=== PATIENT | female | born 1990 | race American Indian/Alaskan Native ===

== ENCOUNTER 2017-07-18 11:05 | Inpatient (IN) | payer OTHER ==
[2017-07-18] MEDS ORDERED: LACTATED RINGERS 500 ML IV ONE (12:30)
[2017-07-18 12:53] LABS: Bacteria,Urine 1+ /HPF (Negative); Bilirubin,Urine NEG (Negative); Blood,Urine NEG (Negative); Color,Urine Yellow (Yellow); Nitrite,Urine NEG (Negative); Protein,Urine <15 mg/dL mg/dL (Negative); Urobilinogen,Urine < 2.0 mg/dL (<2.0)
[2017-07-18] MEDS ORDERED: BRETHINE SUB-Q ONE (14:00)
[2017-07-18] MEDS ORDERED: DEEP SEA NS PRN (15:19)
[2017-07-18] MEDS ORDERED: AMBIEN PO PRN (15:19)
[2017-07-18] MEDS ORDERED: SENOKOT S PO PRN (15:19)
[2017-07-18] MEDS ORDERED: MILK OF MAGNESIA PO PRN (15:19)
[2017-07-18] MEDS ORDERED: ZOFRAN IV PRN (15:19)
[2017-07-18] MEDS ORDERED: COLACE PO PRN (15:19)
[2017-07-18] MEDS ORDERED: ALUM-MAG HYDROX-SIMETH 200-200-20MG/5ML PO PRN (15:19)
[2017-07-18] MEDS ORDERED: MAGNESIUM SULFATE 4GM/100ML 4 GM/100 ML BAG IV ONE (15:19)
--- NOTE | 2017-07-18 15:42 | History and Physical Report ---
History of Present Illness Date of examination: 07/18/17 Chief complaint: labor @ 30 weeks, twin gestation History of present illness: EDC Confirmation: 09/23/2017 by 1st trimester u/s Past History : 5 Term Births: 3 Premature Births: 1 Living Children: 3 Para: 3 Mult. Births: 0 Prev : 0 Prev. attempt? 0 Aborta: 1 Elect. Ab: 0 Spont. Ab: 1 Ectopics: 0 # 1 Delivery date: 08/2005 Weeks Gestation: 34 labor: yes Delivery type: Anesthesia type: epidural Delivery location: [facility] Sex: Female weight: 6-7 Comments: dilated ctx # 2 Delivery date: 05/2007 Weeks Gestation: 40 Delivery type: Anesthesia type: epidural Delivery location: [place] [facility] Sex: Male weight: 7-4 # 3 Delivery date: 04/2012 Delivery type: MAB Comments: cytotec # 4 Delivery date: 01/11/2014 Weeks Gestation: 40 Delivery type: Vaginal Anesthesia type: epidural Delivery location: [facility] Sex: male weight: 7.69 Past Medical History: Nora Chopra (2016) Past Surgical History: Reviewed history from 05/10/2015 and no changes required: cervical cryoablation 2006 Family History Summary: Mother (biol.) - Has Family History of Diabetes - Entered On: 01/24/2017 Other family member - Has Family History of Depression - Entered On: 01/24/2017 General Comments - FH: Family History of Hypertension Social History: Reviewed history from 10/26/2014 and no changes required: non smoker Patient is Smoking History: Patient has never smoked. 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 Genetic History Congenital Heart Defect: Mom: no Dad: no Adriane Disease: Mom: no Dad: no Thalassemia Mom: no Dad: no Neural Tube Defect Mom: no Dad: no Down's Syndrome Mom: no Dad: no Michael-Sachs Mom: no Dad: no Sickle Cell Disease/Trait Mom: no Dad: no Hemophilia Mom: no Dad: no Muscular Dystrophy Mom: no Dad: no Cystic Fibrosis Mom: no Dad: no [place] Chorea Mom: no Dad: no Mental Retardation Mom: no Dad: no Fragile X Mom: no Dad: no Other Genetic/Chromosomal Disorder Mom: no Dad: no Child w/other defect Mom: no Dad: no Enviromental Exposures Xray Exposure: no Medication, drug, or alcohol use since LMP: no Chemical/Other Exposure: no Exposure to Cat Liter: no Hx of Parvovirus (Fifth Disease): no Active Medications (reviewed today): PROMETHAZINE HCL 25 MG ORAL TABS (PROMETHAZINE HCL) 1 tab q 4 to 6 h prn nausea IBUPROFEN () Current Allergies (reviewed today): BENADRYL (Critical) * LATEX (Critical) Past History Past Medical History: other (see HPI) Past Surgical History: other (See HPI) 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) Family/Genetic History: other (see HPI) - Obstetrical History Expected Date of Delivery: 09/23/17 Actual Gestation: 30 Week(s) 3 Day(s) : 5 Para: 3 Hx # Term Pregnancies: 2 Number of Pregnancies: 1 Spontaneous Abortions: 1 Induced : 0 Number of Living Children: 3 Medications and Allergies Allergies Allergy/AdvReac Type Severity Reaction Status Date / Time diphenhydramine HCl Allergy Mild Hives Verified 10/30/13 12:48 [From Benadryl] latex Allergy Itching Verified 12/20/13 14:44 Home Medications Medication Instructions Recorded Confirmed Last Taken Type Vits96/Iron Fum/Folic 1 tab PO DAILY 01/06/14 05/01/17 04/30/17 History [ Tablet] Aspirin [Adult Low Dose Aspirin EC] 81 mg PO DAILY 05/01/17 05/01/17 04/30/17 History Meclizine [Antivert] 25 mg PO TID #30 tablet 05/01/17 Unknown Rx Active Meds: Active Medications Acetaminophen (Tylenol) 650 mg PO Q4H PRN PRN Reason: Pain MILD(1-3)/Fever >100.5/MISHRA Al Hydrox/Mg Hydrox/Simethicone (Alum-Mag Hydrox-Simeth [id number]/5ml) 30 ml PO Q6H PRN PRN Reason: Indigestion Betamethasone Acet/Betameth SodPhos (Celestone Soluspan) 12 mg IM Q24HR MOLINA Stop: 07/19/17 10:01 Docusate Sodium (Colace) 100 mg PO Q12H PRN PRN Reason: Constipation Lactated Ringer's (Lactated Ringers) 1,000 mls @ 125 mls/hr IV DIRECT MOLINA Magnesium Sulfate (Magnesium Sulfate 40gm/1000ml) 40 gm in 1,000 mls @ 50 mls/ hr IV DIRECT MOLINA PRN Reason: 2 GM/HR Magnesium Sulfate (Magnesium Sulfate 4gm/100ml) 4 gm in 100 mls @ 300 mls/hr IV ONCE ONE Stop: 07/18/17 15:38 Magnesium Hydroxide (Milk Of Magnesia) 30 ml PO QHS PRN PRN Reason: Laxative Effect Multivitamins/Iron/Calcium ( Vitamin) 1 each PO QDAY MOLINA Ondansetron HCl (Zofran) 4 mg IV Q6H PRN PRN Reason: Nausea And Vomiting Senna/Docusate Sodium (Senokot S) 2 tab PO Q12H PRN PRN Reason: Laxative Effect Simethicone (Mylicon) 80 mg PO Q6H PRN PRN Reason: Gas pain Sodium Chloride (Deep Sea) 2 spray NS Q4H PRN PRN Reason: Congestion Zolpidem Tartrate (Ambien) 10 mg PO ONCE PRN PRN Reason: Sleep Review of Systems All systems: negative - Vital Signs Vital signs: Vital Signs Temp Pulse Resp BP 98.4 F 90 16 96/60 07/18/17 11:27 07/18/17 11:27 07/18/17 11:27 07/18/17 11:27 Temp Pulse Resp BP Pulse Ox 98.4 F 90 16 96/60 07/18/17 11:27 07/18/17 11:31 07/18/17 11:27 07/18/17 11:31 Results All other labs normal. Patient: ROBBIN CHRISTY ID: [id number] Note: All result statuses are Final unless otherwise noted. Tests: (1) Profile I ([id number]) Order Note: Clinical Information: SRC:UR HBsAg Screen Negative Negative *1 Rubella Antibodies, IgG 1.90 index Immune >0.99 *2 Non-immune <0.90 Equivocal 0.90 - 0.99 Immune >0.99 ABO Grouping O *3 Rh Factor Positive *4 Please note: Prior records for this patient's ABO / Rh type are not available for additional verification. Antibody Screen Negative Negative *5 RPR Non Reactive Non Reactive *6 WBC 4.0 x10E3/uL 3.4-10.8 *7 RBC 4.35 x10E6/uL 3.77-5.28 *8 Hemoglobin 13.6 g/dL 11.1-15.9 *9 Hematocrit 39.7 % 34.0-46.6 *10 MCV 91 fL 79-97 *11 MCH 31.3 pg 26.6-33.0 *12 MCHC 34.3 g/dL 31.5-35.7 *13 RDW 13.3 % 12.3-15.4 *14 Platelets 180 x10E3/uL 150-379 *15 Neutrophils 49 % *16 Lymphs 40 % *17 Monocytes 10 % *18 Eos 1 % *19 Basos 0 % *20 ! Immature Cells <No Reported Value> *21 Neutrophils (Absolute) 2.0 x10E3/uL 1.4-7.0 *22 Lymphs (Absolute) 1.6 x10E3/uL 0.7-3.1 *23 Monocytes(Absolute) 0.4 x10E3/uL 0.1-0.9 *24 Eos (Absolute) 0.0 x10E3/uL 0.0-0.4 *25 Baso (Absolute) 0.0 x10E3/uL 0.0-0.2 *26 ! Immature Granulocytes 0 % *27 ! Immature Grans (Abs) 0.0 x10E3/uL 0.0-0.1 *28 ! NRBC <No Reported Value> *29 Hematology Comments: <No Reported Value> *30 Tests: (2) Cystic Fibrosis Profile ([id number]) ! CF, Screen Comment: *31 RESULTS: Negative for 32 mutations analyzed INTERPRETATION: This individual is negative for the mutations analyzed. This negative result may need further interpretation depending on the clinical indication. This result reduces but does not eliminate the risk to be a CF carrier. COMMENTS: The detection rate varies with ethnicity and is listed below. The presence of an undetected mutation in the CF gene cannot be ruled out. In the absence of family history, the remaining risk that a person with a negative result could have at least one CF mutation is listed in the table. If there is a family history of CF, these risk figures do not apply. As detailed information regarding this individual's family history would permit a more accurate assessment of this individual's risk to be a carrier of cystic fibrosis, please contact [email or web address] for a revised report. Mutation Detection Detection rates are based on mutation Rates among Ethnic frequencies in patients affected with Groups cystic fibrosis. Among individuals with an atypical or mild presentation (e.g. congenital absence of the vas deferens, pancreatitis) detection rates may vary from those provided here: Carrier risk reduction when no family history Detection Ethnicity Rate Ashkenazi 07/25 to 97% Buddhism 07/24 to 90% (non-) -Israeli to 69% to 73% to 55% This interpretation is based on the clinical and family relationship information provided and the current understanding of the molecular genetics of this condition. MUTATIONS ANALYZED: G85E V520F U2728Z 2183AA to G R117H G542X F8385D 2184delA R334W S549N 394delTT 2789+5G to A R347H S549R 621+1G to T 3120+1G to A R347P G551D 711+1G to T 3659delC A455E R553X 1078delT 3849+10kbC to T [id number] R560T 1717-1G to A 3876delA RgesiV723 H7078D 1898+1G to A 3905insT METHODS/LIMITATIONS: DNA is isolated from the sample and tested for the 32 CF mutations on the [place] [employer] Platform ([employer]). Regions of the CFTR gene are amplified enzymatically and subjected to a solution-phase multiplex allele-specific primer extension with subsequent hybridization to a bead array and fluorescence detection. Polymorphisms F508C, I506V and I507V are included in this panel to rule out false positive [id number] homozygotes. Reflex testing of 5T is included in the panel for R117H interpretation. False positive or negative results may occur for reasons that include genetic variants, blood transfusions, bone marrow transplantation, erroneous representation of family relationships or contamination of a sample with maternal cells. REFERENCES: 1. Updates on Carrier Screening for Cystic Fibrosis. (2011) Am J Ob Gynecol 117(4):6185-7511 2. Brandon et al. (2004) Irene Med 6:387-91 3. Leslie et al. (2002) Irene Med 4:379-391 4. Preconception and carrier screening for cystic fibrosis: (2001)ACOG.ACMG publication Results Released By: Ian Saha, Ph.D. [employer] Top Sealer Report Released By: Ian Saha, Ph.D. String Top Sealer ! Comment: SPRCS *32 The assay provides information intended to be used for carrier screening in adults of reproductive age, as an aid in screening, and as a confirmatory test for another medically established diagnosis in newborns and children. The test is not indicated for use in diagnostic testing, pre-implantation screening, or for any stand-alone diagnostic purposes without confirmation by another medically established diagnostic product or procedure. Tests: (3) HB Solu + Rflx Frac ([id number]) Hemoglobin (Hgb) Solubility Negative Negative *33 Tests: (4) Panel 328388 ([id number]) HIV Screen 4th Generation wRfx Non Reactive Non Reactive *34 Tests: (5) HCV Ab w/Rflx to Verification ([id number]) ! HCV Ab <0.1 s/co ratio 0.0-0.9 *35 Tests: (6) Comment: ([id number]) ! Comment: SPRCS *36 Non reactive HCV antibody screen is consistent with no HCV infection, unless recent infection is suspected or other evidence exists to indicate HCV infection. Tests: (7) Urine Culture, Routine ([id number]) Urine Culture, Routine Final report *37 Tests: (8) Result ([id number]) ! Result 1 No growth *38 Assessment and Plan patient presented to triage @ 30 weeks with c/o painful ctx, twin gestation. Ctx did not decrease in intensity or frequency with IVF and brethine x 1. SVE 1 per assistant city attorney, + FFN. Plan to admit for labor, mag sulfate and steroids for lung maturity. Will consults AMFM (pt is existing patient of theirs) and NICU. Dr. Claire aware of patient's admission. Plan of care reviewed with patient, all questions addressed. - Patient Problems (1) 30 weeks gestation of Current Visit: Yes Status: Acute (2) labor in third trimester Onset Date: 07/18/17 Current Visit: Yes Status: Acute Qualifiers: Fetus number: fetus 2 of multiple gestation Plan to address problem: mag sulfate steroids for lung maturity AMFM consult (3) Twin gestation, dichorionic/diamniotic (two placentae, two amniotic sacs) Current Visit: Yes Status: Acute Qualifiers: Trimester: third trimester Qualified Code(s): O30.043 - Twin , dichorionic/diamniotic, third trimester
[2017-07-18] MEDS ORDERED: CELESTONE SOLUSPAN IM SCH (16:00)
[2017-07-18] MEDS ORDERED: MAGNESIUM SULFATE 40GM/1000ML 40 GM/1,000 ML BAG IV SCH (16:00)
[2017-07-18] MEDS: LACTATED RINGERS 1,000 ML IV SCH (16:29)
[2017-07-18 16:52] LABS: Basophils % (Auto) 0.5 % (0.0-1.8); Eosinophils % (Auto) 0.4 % (0.0-4.3); Hemoglobin 12.8 gm/dl (10.1-14.3); Lymphocytes # (Auto) 1.4 K/mm3 (1.2-5.4); Lymphocytes % (Auto) 19.7 % (13.4-35.0); Mean Corpuscular HGB Conc 34 % (30-34); Mean Corpuscular Hemoglobin 30 pg (28-32); Mean Corpuscular Volume 90 fl (79-97); Monocytes # (Auto) 0.5 K/mm3 (0.0-0.8); Monocytes % (Auto) 6.7 % (0.0-7.3); Platelet Count 140 K/mm3 (140-440); Red Blood Count 4.23 M/mm3 (3.65-5.03); Red Cell Distribution Width 13.2 % (13.2-15.2)
[2017-07-18] MEDS ORDERED: STADOL ONE (20:38)
[2017-07-18] MEDS ORDERED: STADOL IV ONE (20:39)
[2017-07-19] MEDS: MYLICON PO PRN ×2 (00:38→06:22)
[2017-07-19] MEDS: LACTATED RINGERS 1,000 ML IV SCH ×2 (02:44→16:48)
[2017-07-19] MEDS: STADOL IV PRN ×2 (03:20→22:05)
[2017-07-19] MEDS ORDERED: MAGNESIUM SULFATE 40GM/1000ML 40 GM/1,000 ML BAG IV SCH (04:00)
--- NOTE | 2017-07-19 04:06 | Ultrasound Report ---
FINAL REPORT EXAM: US OB LIMITED HISTORY: presentation TECHNIQUE: Limited transabdominal imaging was obtained of the pelvis for evaluation of presentation. FINDINGS: There is a twin . For twin a, the presentation is cephalic. The placenta is posterior and is grade 1. The heart rate is 124 BPM. The largest vertical pocket of amniotic fluid is 3.7 cm which is normal. For twin B, presentation is breech. The placenta is posterior and is grade 1. The heart is 122 BPM. The largest vertical pocket of an not of fluid is 4.4 cm which is normal. IMPRESSION: Twin a: Cephalic presentation, heart is 124 BPM. Twin B: Breech presentation, heart is 122 BPM The placenta is posterior in position and is grade 1.
--- NOTE | 2017-07-19 04:22 | Progress Note ---
Assessment and Plan - Patient Problems (1) 30 weeks gestation of Current Visit: Yes Status: Acute Plan to address problem: Discussed with the patient the risks of premature delivery at this gestational age obtain a NICU consult discuss lung maturity associated with early delivery and need of the intensive care admission. Patient has received 1 dose of betamethasone and discussed that the benefits of delivering of 48 hours after betamethasone given. (2) labor in third trimester Onset Date: 07/18/17 Current Visit: Yes Status: Acute Qualifiers: Fetus number: fetus 2 of multiple gestation Plan to address problem: Will increase magnesium sulfate to try to begin stay off delivery. Discussed with the patient the need for section due to malposition of twin B. We will recheck patient to see this progress in dilatation.Patient informed the risks of the surgery include bleeding possibly bleeding heavy enough to require blood transfusion, infection possible damage to bowel bladder ureter. All questions answered. (3) Twin gestation, dichorionic/diamniotic (two placentae, two amniotic sacs) Current Visit: Yes Status: Acute Qualifiers: Trimester: third trimester Qualified Code(s): O30.043 - Twin , dichorionic/diamniotic, third trimester (4) Screening and evaluation for female sterilization Current Visit: Yes Status: Acute Plan to address problem: Patient desires permanent sterilization if section was performed She understands that this surgery would make her permanently sterile. She also understands the approximate 1% failure rate. The patient understands all the above and desires to proceed. Subjective - Subjective Date of service: 07/19/17 Interval history: Patient admitted with persistent irregular contractions and positive fibronectin. She had had a mag level of internal 1 g an hour after elevated level was reported the patient does still with the irregular contractions were stronger and stress and had a cervical check shows a change from 1 cm to 3 cm. Ultrasound shows the twin gestation position of the vertex twin A and breech for twin B Patient reports: movement normal, contractions Objective - Vital Signs Vital Signs: Vital Signs - 12hr 07/18/17 07/18/17 07/18/17 16:55 16:57 17:00 Temperature Pulse Rate 94 H 88 82 Respiratory Rate Blood Pressure 109/73 107/65 O2 Sat by Pulse 99 Oximetry 07/18/17 07/18/17 07/18/17 17:02 17:05 17:07 Temperature Pulse Rate 102 H 88 90 Respiratory Rate Blood Pressure 105/61 O2 Sat by Pulse 98 99 Oximetry 07/18/17 07/18/17 07/18/17 17:10 17:12 17:15 Temperature Pulse Rate 90 91 H 93 H Respiratory Rate Blood Pressure 108/65 109/68 O2 Sat by Pulse 100 Oximetry 07/18/17 07/18/17 07/18/17 17:17 17:20 17:22 Temperature Pulse Rate 84 86 88 Respiratory Rate Blood Pressure 115/77 O2 Sat by Pulse 97 100 Oximetry 07/18/17 07/18/17 07/18/17 17:23 17:25 17:27 Temperature Pulse Rate 98 H 88 86 Respiratory Rate Blood Pressure 112/72 O2 Sat by Pulse 94 100 Oximetry 07/18/17 07/18/17 07/18/17 17:31 17:32 17:37 Temperature Pulse Rate 91 H 77 97 H Respiratory Rate Blood Pressure 128/82 O2 Sat by Pulse 100 99 Oximetry 07/18/17 07/18/17 07/18/17 17:40 17:43 17:45 Temperature Pulse Rate 157 H 123 H 78 Respiratory Rate Blood Pressure 120/68 120/65 O2 Sat by Pulse 98 Oximetry 07/18/17 07/18/17 07/18/17 17:48 17:50 17:53 Temperature Pulse Rate 131 H 118 H 138 H Respiratory Rate Blood Pressure 108/60 O2 Sat by Pulse 97 98 Oximetry 07/18/17 07/18/17 07/18/17 17:55 17:58 18:00 Temperature Pulse Rate 71 129 H 125 H Respiratory Rate Blood Pressure 103/60 107/62 O2 Sat by Pulse 97 Oximetry 07/18/17 07/18/17 07/18/17 18:03 18:05 18:08 Temperature Pulse Rate 152 H 142 H 129 H Respiratory Rate Blood Pressure 98/66 O2 Sat by Pulse 97 97 Oximetry 07/18/17 07/18/17 07/18/17 18:11 18:13 18:15 Temperature Pulse Rate 160 H 141 H 155 H Respiratory Rate Blood Pressure 95/80 104/69 O2 Sat by Pulse 100 Oximetry 07/18/17 07/18/17 07/18/17 18:18 18:23 18:28 Temperature Pulse Rate 87 141 H 87 Respiratory Rate Blood Pressure O2 Sat by Pulse 99 99 99 Oximetry 01/07/18/17 07/18/17 18:30 18:33 18:38 Temperature Pulse Rate 93 H 93 H 92 H Respiratory Rate Blood Pressure 103/62 O2 Sat by Pulse 98 98 Oximetry 07/18/17 07/18/17 07/18/17 18:43 18:45 18:48 Temperature Pulse Rate 86 96 H 95 H Respiratory Rate Blood Pressure 104/63 O2 Sat by Pulse 98 99 Oximetry 07/18/17 07/18/17 07/18/17 18:53 18:58 19:00 Temperature Pulse Rate 88 90 96 H Respiratory Rate Blood Pressure 111/63 O2 Sat by Pulse 99 99 Oximetry 07/18/17 07/18/17 07/18/17 19:03 19:08 19:13 Temperature Pulse Rate 100 H 96 H 95 H Respiratory Rate Blood Pressure O2 Sat by Pulse 97 98 98 Oximetry 07/18/17 07/18/17 07/18/17 19:15 19:18 19:23 Temperature Pulse Rate 97 H 101 H 90 Respiratory Rate Blood Pressure 104/66 O2 Sat by Pulse 97 98 Oximetry 07/18/17 07/18/17 07/18/17 19:28 19:30 19:33 Temperature Pulse Rate 90 93 H 97 H Respiratory Rate Blood Pressure 103/67 O2 Sat by Pulse 99 99 Oximetry 07/18/17 07/18/17 07/18/17 19:38 19:42 19:43 Temperature Pulse Rate 114 H 92 H 106 H Respiratory Rate Blood Pressure 100/64 O2 Sat by Pulse 99 100 Oximetry 07/18/17 07/18/17 07/18/17 19:45 19:48 19:53 Temperature 98.0 F Pulse Rate 93 H 96 H 92 H Respiratory 18 Rate Blood Pressure 104/68 O2 Sat by Pulse 98 98 Oximetry 07/18/17 07/18/17 07/18/17 19:58 20:01 20:03 Temperature Pulse Rate 98 H 100 H 93 H Respiratory Rate Blood Pressure 116/62 O2 Sat by Pulse 99 98 Oximetry 07/18/17 07/18/17 07/18/17 20:08 20:13 20:15 Temperature Pulse Rate 93 H 101 H 93 H Respiratory Rate Blood Pressure 110/65 O2 Sat by Pulse 98 98 Oximetry 07/18/17 07/18/17 07/18/17 20:18 20:23 20:28 Temperature Pulse Rate 97 H 98 H 91 H Respiratory Rate Blood Pressure O2 Sat by Pulse 97 98 99 Oximetry 07/18/17 07/18/17 07/18/17 20:31 20:33 20:38 Temperature Pulse Rate 87 90 93 H Respiratory Rate Blood Pressure 110/68 O2 Sat by Pulse 99 99 Oximetry 07/18/17 07/18/17 07/18/17 20:43 20:45 20:48 Temperature Pulse Rate 98 H 96 H 93 H Respiratory 20 Rate Blood Pressure 105/60 O2 Sat by Pulse 98 99 Oximetry 07/18/17 07/18/17 07/18/17 20:53 20:58 21:00 Temperature Pulse Rate 96 H 103 H 90 Respiratory Rate Blood Pressure 109/61 O2 Sat by Pulse 98 98 Oximetry 07/18/17 07/18/17 07/18/17 21:03 21:08 21:13 Temperature Pulse Rate 90 103 H 85 Respiratory Rate Blood Pressure O2 Sat by Pulse 98 98 96 Oximetry 07/18/17 07/18/17 07/18/17 21:15 21:18 21:23 Temperature Pulse Rate 85 89 89 Respiratory Rate Blood Pressure 96/55 O2 Sat by Pulse 96 95 Oximetry 07/18/17 07/18/17 07/18/17 21:28 21:30 21:33 Temperature Pulse Rate 85 88 87 Respiratory Rate Blood Pressure 99/58 O2 Sat by Pulse 97 96 Oximetry 07/18/17 07/18/17 07/18/17 21:38 21:43 21:45 Temperature Pulse Rate 84 87 90 Respiratory Rate Blood Pressure 98/53 O2 Sat by Pulse 96 97 Oximetry 07/18/17 07/18/17 07/18/17 21:48 21:53 21:58 Temperature Pulse Rate 89 90 97 H Respiratory Rate Blood Pressure O2 Sat by Pulse 97 97 98 Oximetry 07/18/17 07/18/17 07/18/17 22:00 22:03 22:08 Temperature Pulse Rate 78 88 97 H Respiratory Rate Blood Pressure 104/61 O2 Sat by Pulse 94 96 95 Oximetry 07/18/17 07/18/17 07/18/17 22:13 22:17 22:18 Temperature Pulse Rate 86 87 86 Respiratory Rate Blood Pressure 97/58 O2 Sat by Pulse 97 97 Oximetry 07/18/17 07/18/17 07/18/17 22:23 22:28 22:32 Temperature Pulse Rate 88 84 89 Respiratory Rate Blood Pressure 97/56 O2 Sat by Pulse 97 96 93 Oximetry 07/18/17 07/18/17 07/18/17 22:33 22:38 22:43 Temperature Pulse Rate 92 H 95 H 89 Respiratory Rate Blood Pressure O2 Sat by Pulse 96 97 97 Oximetry 07/18/17 07/18/17 07/18/17 22:45 22:48 22:53 Temperature Pulse Rate 95 H 88 92 H Respiratory Rate Blood Pressure 99/56 O2 Sat by Pulse 96 96 Oximetry 07/18/17 07/18/17 07/18/17 22:58 23:00 23:03 Temperature Pulse Rate 94 H 91 H 91 H Respiratory Rate Blood Pressure 96/52 O2 Sat by Pulse 96 96 Oximetry 07/18/17 07/18/17 07/18/17 23:08 23:13 23:15 Temperature Pulse Rate 91 H 82 83 Respiratory Rate Blood Pressure 102/60 O2 Sat by Pulse 96 97 Oximetry 07/18/17 07/18/17 07/18/17 23:18 23:23 23:28 Temperature Pulse Rate 92 H 92 H 95 H Respiratory Rate Blood Pressure O2 Sat by Pulse 97 97 97 Oximetry 07/18/17 07/18/17 07/18/17 23:30 23:33 23:38 Temperature Pulse Rate 96 H 94 H 91 H Respiratory Rate Blood Pressure 92/55 O2 Sat by Pulse 97 97 Oximetry 07/18/17 07/18/17 07/19/17 23:43 23:46 00:00 Temperature 97.9 F Pulse Rate 92 H 89 83 Respiratory 18 Rate Blood Pressure 101/58 O2 Sat by Pulse 96 93 97 Oximetry 07/19/17 07/19/17 07/19/17 00:05 00:10 00:15 Temperature Pulse Rate 82 86 86 Respiratory Rate Blood Pressure O2 Sat by Pulse 97 97 97 Oximetry 07/19/17 07/19/17 07/19/17 00:20 00:25 00:30 Temperature Pulse Rate 87 85 86 Respiratory Rate Blood Pressure O2 Sat by Pulse 97 97 97 Oximetry 07/19/17 07/19/17 07/19/17 00:35 00:40 00:45 Temperature Pulse Rate 85 85 84 Respiratory Rate Blood Pressure O2 Sat by Pulse 97 96 97 Oximetry 01/20/18 01/20/18 01/20/18 00:50 00:55 01:00 Temperature Pulse Rate 85 86 86 Respiratory Rate Blood Pressure O2 Sat by Pulse 97 97 97 Oximetry 07/19/17 07/19/17 07/19/17 01:02 01:05 01:10 Temperature Pulse Rate 83 95 H 96 H Respiratory Rate Blood Pressure 99/55 O2 Sat by Pulse 96 97 Oximetry 07/19/17 07/19/17 07/19/17 01:15 01:22 01:23 Temperature Pulse Rate 85 107 H 100 H Respiratory Rate Blood Pressure O2 Sat by Pulse 98 89 94 Oximetry 07/19/17 07/19/17 07/19/17 01:28 01:33 01:38 Temperature Pulse Rate 77 85 83 Respiratory Rate Blood Pressure O2 Sat by Pulse 98 97 96 Oximetry 07/19/17 07/19/17 07/19/17 01:43 01:48 01:53 Temperature Pulse Rate 89 89 91 H Respiratory Rate Blood Pressure O2 Sat by Pulse 96 97 96 Oximetry 07/19/17 07/19/17 07/19/17 01:58 02:01 02:03 Temperature Pulse Rate 87 84 86 Respiratory Rate Blood Pressure 99/57 O2 Sat by Pulse 96 96 Oximetry 07/19/17 07/19/17 07/19/17 02:08 02:13 02:18 Temperature Pulse Rate 88 88 94 H Respiratory Rate Blood Pressure O2 Sat by Pulse 95 95 95 Oximetry 07/19/17 07/19/17 07/19/17 02:23 02:28 02:29 Temperature Pulse Rate 91 H 95 H 96 H Respiratory Rate Blood Pressure O2 Sat by Pulse 95 95 94 Oximetry 07/19/17 07/19/17 07/19/17 02:33 02:38 02:43 Temperature Pulse Rate 92 H 92 H 93 H Respiratory Rate Blood Pressure O2 Sat by Pulse 97 98 97 Oximetry 07/19/17 07/19/17 07/19/17 02:48 02:53 03:06 Temperature Pulse Rate 95 H 86 91 H Respiratory Rate Blood Pressure O2 Sat by Pulse 97 97 99 Oximetry 07/19/17 07/19/17 07/19/17 03:11 03:16 03:20 Temperature Pulse Rate 93 H 93 H Respiratory 20 Rate Blood Pressure O2 Sat by Pulse 99 99 Oximetry 07/19/17 07/19/17 07/19/17 03:21 03:22 03:26 Temperature Pulse Rate 88 100 H 95 H Respiratory Rate Blood Pressure 114/69 O2 Sat by Pulse 97 98 Oximetry 07/19/17 07/19/17 07/19/17 03:31 03:36 03:41 Temperature Pulse Rate 107 H 97 H 103 H Respiratory Rate Blood Pressure O2 Sat by Pulse 97 100 100 Oximetry 07/19/17 07/19/17 07/19/17 03:46 03:51 03:56 Temperature Pulse Rate 89 94 H 99 H Respiratory Rate Blood Pressure O2 Sat by Pulse 97 97 97 Oximetry 07/19/17 07/19/17 07/19/17 04:01 04:03 04:06 Temperature Pulse Rate 90 93 H 89 Respiratory Rate Blood Pressure 106/61 O2 Sat by Pulse 97 97 Oximetry 07/19/17 07/19/17 04:11 04:16 Temperature Pulse Rate 89 87 Respiratory Rate Blood Pressure O2 Sat by Pulse 96 97 Oximetry - Exam Breasts: deferred Abdomen: Present: soft FHR: category 2 Cervical Dilatation: 3 (per RN) Cervical Effacement Percentage: 60 (per RN) station: -2 Uterine Contraction Pattern: Irregular Uterine Contraction Intensity: Moderate - Labs Labs: Abnormal Labs 07/18/17 07/18/17 07/19/17 16:30 18:03 01:00 Seg Neutrophils % 72.7 H Magnesium 6.70 H 4.70 H Laboratory Results - last 24 hr 07/18/17 07/18/17 07/18/17 12:31 13:55 16:30 WBC 7.1 RBC 4.23 Hgb 12.8 Hct 38.0 MCV 90 MCH 30 MCHC 34 RDW 13.2 Plt Count 140 Lymph % (Auto) 19.7 [place] % (Auto) 6.7 Eos % (Auto) 0.4 Baso % (Auto) 0.5 Lymph # 1.4 [place] # 0.5 Eos # 0.0 Baso # 0.0 Seg Neutrophils % 72.7 H Seg Neutrophils # 5.2 Magnesium Urine Color Yellow Urine Turbidity Clear Urine pH 7.0 Ur Specific [place] 1.009 Urine Protein <15 mg/dl Urine Glucose (UA) Neg Urine Ketones 20 Urine Blood Neg Urine Nitrite Neg Urine Bilirubin Neg Urine Urobilinogen < 2.0 Ur Leukocyte Esterase Sm Urine WBC (Auto) 1.0 Urine RBC (Auto) 3.0 U Epithel Cells (Auto) 2.0 Urine Bacteria (Auto) 1+ Fibronectin Positive Blood Type Antibody Screen 07/18/17 07/18/17 07/19/17 16:30 18:03 01:00 WBC RBC Hgb Hct MCV MCH MCHC RDW Plt Count Lymph % (Auto) [place] % (Auto) Eos % (Auto) Baso % (Auto) Lymph # [place] # Eos # Baso # Seg Neutrophils % Seg Neutrophils # Magnesium 6.70 H 4.70 H Urine Color Urine Turbidity Urine pH Ur Specific [place] Urine Protein Urine Glucose (UA) Urine Ketones Urine Blood Urine Nitrite Urine Bilirubin Urine Urobilinogen Ur Leukocyte Esterase Urine WBC (Auto) Urine RBC (Auto) U Epithel Cells (Auto) Urine Bacteria (Auto) Fibronectin Blood Type O POSITIVE Antibody Screen Negative
[2017-07-19] MEDS ORDERED: CELESTONE SOLUSPAN IM ONE (05:59)
--- NOTE | 2017-07-19 06:05 | Event Note ---
Date: 07/19/17 Patient sleep in the room with family. Recheck her cervix showed no change. Contractions still irregular. Will give second dose of betamethasone. We'll continue magnesium sulfate for now. Continue expectant management
[2017-07-19] MEDS: POLYCILLIN/NS 1 GM/50 ML 1 GM/50 ML BAG IV SCH ×4 (07:59→20:00)
--- NOTE | 2017-07-19 08:05 | Progress Note ---
Assessment and Plan Patient resting, c/o sleeping after stadol administration but now feeling ctx again. FHT CAT 1 x 2, ctx irregular. Will reexamine SVE for any additional signs of labor. encouraged ISS. Dr. Sanabria updated. - Patient Problems (1) 30 weeks gestation of Current Visit: Yes Status: Acute (2) labor in third trimester Onset Date: 07/18/17 Current Visit: Yes Status: Acute Qualifiers: Fetus number: fetus 2 of multiple gestation (3) Twin gestation, dichorionic/diamniotic (two placentae, two amniotic sacs) Current Visit: Yes Status: Acute Qualifiers: Trimester: third trimester Qualified Code(s): O30.043 - Twin , dichorionic/diamniotic, third trimester Subjective - Subjective Date of service: 07/19/17 Principal diagnosis: IUP 30+4, labor, twins vtx/breech Interval history: EDC Confirmation: 09/23/2017 by 1st trimester u/s Past History : 5 Term Births: 3 Premature Births: 1 Living Children: 3 Para: 3 Mult. Births: 0 Prev : 0 Prev. attempt? 0 Aborta: 1 Elect. Ab: 0 Spont. Ab: 1 Ectopics: 0 # 1 Delivery date: 08/2005 Weeks Gestation: 34 labor: yes Delivery type: Anesthesia type: epidural Delivery location: [facility] Infant Sex: Female weight: 6-7 Comments: dilated ctx # 2 Delivery date: 05/2007 Weeks Gestation: 40 Delivery type: Anesthesia type: epidural Delivery location: [place] Sex: Male weight: 7-4 # 3 Delivery date: 04/2012 Delivery type: MAB Comments: cytotec # 4 Delivery date: 01/11/2014 Weeks Gestation: 40 Delivery type: Vaginal Anesthesia type: epidural Delivery location: [facility] Infant Sex: male weight: 7.69 Past Medical History: G E R Nav (2016) Past Surgical History: Reviewed history from 05/10/2015 and no changes required: cervical cryoablation 2006 Family History Summary: Mother (biol.) - Has Family History of Diabetes - Entered On: 01/24/2017 Other family member - Has Family History of Depression - Entered On: 01/24/2017 General Comments - FH: Family History of Hypertension Social History: Reviewed history from 10/26/2014 and no changes required: non smoker Patient is Smoking History: Patient has never smoked. 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 Genetic History Congenital Heart Defect: Mom: no Dad: no Adriane Disease: Mom: no Dad: no Thalassemia Mom: no Dad: no Neural Tube Defect Mom: no Dad: no Down's Syndrome Mom: no Dad: no Michael-Sachs Mom: no Dad: no Sickle Cell Disease/Trait Mom: no Dad: no Hemophilia Mom: no Dad: no Muscular Dystrophy Mom: no Dad: no Cystic Fibrosis Mom: no Dad: no Jamil Chorea Mom: no Dad: no Mental Retardation Mom: no Dad: no Fragile X Mom: no Dad: no Other Genetic/Chromosomal Disorder Mom: no Dad: no Child w/other defect Mom: no Dad: no Enviromental Exposures Xray Exposure: no Medication, drug, or alcohol use since LMP: no Chemical/Other Exposure: no Exposure to Cat Liter: no Hx of Parvovirus (Fifth Disease): no Active Medications (reviewed today): PROMETHAZINE HCL 25 MG ORAL TABS (PROMETHAZINE HCL) 1 tab q 4 to 6 h prn nausea IBUPROFEN () Current Allergies (reviewed today): BENADRYL (Critical) * LATEX (Critical) Patient reports: movement normal, contractions, no new complaints, no loss of fluid, no vaginal bleeding Objective - Vital Signs Vital Signs: Vital Signs - 12hr 07/18/17 07/18/17 07/18/17 20:03 20:08 20:13 Temperature Pulse Rate 93 H 93 H 101 H Respiratory Rate Blood Pressure O2 Sat by Pulse 98 98 98 Oximetry 07/18/17 07/18/17 07/18/17 20:15 20:18 20:23 Temperature Pulse Rate 93 H 97 H 98 H Respiratory Rate Blood Pressure 110/65 O2 Sat by Pulse 97 98 Oximetry 07/18/17 07/18/17 07/18/17 20:28 20:31 20:33 Temperature Pulse Rate 91 H 87 90 Respiratory Rate Blood Pressure 110/68 O2 Sat by Pulse 99 99 Oximetry 07/18/17 07/18/17 07/18/17 20:38 20:43 20:45 Temperature Pulse Rate 93 H 98 H 96 H Respiratory 20 Rate Blood Pressure 105/60 O2 Sat by Pulse 99 98 Oximetry 07/18/17 07/18/17 07/18/17 20:48 20:53 20:58 Temperature Pulse Rate 93 H 96 H 103 H Respiratory Rate Blood Pressure O2 Sat by Pulse 99 98 98 Oximetry 07/18/17 07/18/17 07/18/17 21:00 21:03 21:08 Temperature Pulse Rate 90 90 103 H Respiratory Rate Blood Pressure 109/61 O2 Sat by Pulse 98 98 Oximetry 07/18/17 07/18/17 07/18/17 21:13 21:15 21:18 Temperature Pulse Rate 85 85 89 Respiratory Rate Blood Pressure 96/55 O2 Sat by Pulse 96 96 Oximetry 07/18/17 07/18/17 07/18/17 21:23 21:28 21:30 Temperature Pulse Rate 89 85 88 Respiratory Rate Blood Pressure 99/58 O2 Sat by Pulse 95 97 Oximetry 07/18/17 07/18/17 07/18/17 21:33 21:38 21:43 Temperature Pulse Rate 87 84 87 Respiratory Rate Blood Pressure O2 Sat by Pulse 96 96 97 Oximetry 07/18/17 07/18/17 07/18/17 21:45 21:48 21:53 Temperature Pulse Rate 90 89 90 Respiratory Rate Blood Pressure 98/53 O2 Sat by Pulse 97 97 Oximetry 07/18/17 07/18/17 07/18/17 21:58 22:00 22:03 Temperature Pulse Rate 97 H 78 88 Respiratory Rate Blood Pressure 104/61 O2 Sat by Pulse 98 94 96 Oximetry 07/18/17 07/18/17 07/18/17 22:08 22:13 22:17 Temperature Pulse Rate 97 H 86 87 Respiratory Rate Blood Pressure 97/58 O2 Sat by Pulse 95 97 Oximetry 07/18/17 07/18/17 07/18/17 22:18 22:23 22:28 Temperature Pulse Rate 86 88 84 Respiratory Rate Blood Pressure O2 Sat by Pulse 97 97 96 Oximetry 07/18/17 07/18/17 07/18/17 22:32 22:33 22:38 Temperature Pulse Rate 89 92 H 95 H Respiratory Rate Blood Pressure 97/56 O2 Sat by Pulse 93 96 97 Oximetry 07/18/17 07/18/17 07/18/17 22:43 22:45 22:48 Temperature Pulse Rate 89 95 H 88 Respiratory Rate Blood Pressure 99/56 O2 Sat by Pulse 97 96 Oximetry 07/18/17 07/18/17 07/18/17 22:53 22:58 23:00 Temperature Pulse Rate 92 H 94 H 91 H Respiratory Rate Blood Pressure 96/52 O2 Sat by Pulse 96 96 Oximetry 07/18/17 07/18/17 07/18/17 23:03 23:08 23:13 Temperature Pulse Rate 91 H 91 H 82 Respiratory Rate Blood Pressure O2 Sat by Pulse 96 96 97 Oximetry 07/18/17 07/18/17 07/18/17 23:15 23:18 23:23 Temperature Pulse Rate 83 92 H 92 H Respiratory Rate Blood Pressure 102/60 O2 Sat by Pulse 97 97 Oximetry 07/18/17 07/18/17 07/18/17 23:28 23:30 23:33 Temperature Pulse Rate 95 H 96 H 94 H Respiratory Rate Blood Pressure 92/55 O2 Sat by Pulse 97 97 Oximetry 07/18/17 07/18/17 07/18/17 23:38 23:43 23:46 Temperature Pulse Rate 91 H 92 H 89 Respiratory Rate Blood Pressure O2 Sat by Pulse 97 96 93 Oximetry 07/19/17 07/19/17 07/19/17 00:00 00:05 00:10 Temperature 97.9 F Pulse Rate 83 82 86 Respiratory 18 Rate Blood Pressure 101/58 O2 Sat by Pulse 97 97 97 Oximetry 07/19/17 07/19/17 07/19/17 00:15 00:20 00:25 Temperature Pulse Rate 86 87 85 Respiratory Rate Blood Pressure O2 Sat by Pulse 97 97 97 Oximetry 07/19/17 07/19/17 07/19/17 00:30 00:35 00:40 Temperature Pulse Rate 86 85 85 Respiratory Rate Blood Pressure O2 Sat by Pulse 97 97 96 Oximetry 07/19/17 07/19/17 07/19/17 00:45 00:50 00:55 Temperature Pulse Rate 84 85 86 Respiratory Rate Blood Pressure O2 Sat by Pulse 97 97 97 Oximetry 0107/19/17 07/19/17 01:00 01:02 01:05 Temperature Pulse Rate 86 83 95 H Respiratory Rate Blood Pressure 99/55 O2 Sat by Pulse 97 96 Oximetry 07/19/17 07/19/17 07/19/17 01:10 01:15 01:22 Temperature Pulse Rate 96 H 85 107 H Respiratory Rate Blood Pressure O2 Sat by Pulse 97 98 89 Oximetry 07/19/17 07/19/17 07/19/17 01:23 01:28 01:33 Temperature Pulse Rate 100 H 77 85 Respiratory Rate Blood Pressure O2 Sat by Pulse 94 98 97 Oximetry 07/19/17 07/19/17 07/19/17 01:38 01:43 01:48 Temperature Pulse Rate 83 89 89 Respiratory Rate Blood Pressure O2 Sat by Pulse 96 96 97 Oximetry 07/19/17 07/19/17 07/19/17 01:53 01:58 02:01 Temperature Pulse Rate 91 H 87 84 Respiratory Rate Blood Pressure 99/57 O2 Sat by Pulse 96 96 Oximetry 07/19/17 07/19/17 07/19/17 02:03 02:08 02:13 Temperature Pulse Rate 86 88 88 Respiratory Rate Blood Pressure O2 Sat by Pulse 96 95 95 Oximetry 07/19/17 07/19/17 07/19/17 02:18 02:23 02:28 Temperature Pulse Rate 94 H 91 H 95 H Respiratory Rate Blood Pressure O2 Sat by Pulse 95 95 95 Oximetry 07/19/17 07/19/17 07/19/17 02:29 02:33 02:38 Temperature Pulse Rate 96 H 92 H 92 H Respiratory Rate Blood Pressure O2 Sat by Pulse 94 97 98 Oximetry 07/19/17 07/19/17 07/19/17 02:43 02:48 02:53 Temperature Pulse Rate 93 H 95 H 86 Respiratory Rate Blood Pressure O2 Sat by Pulse 97 97 97 Oximetry 07/19/17 07/19/17 07/19/17 03:06 03:11 03:16 Temperature Pulse Rate 91 H 93 H 93 H Respiratory Rate Blood Pressure O2 Sat by Pulse 99 99 99 Oximetry 07/19/17 07/19/17 07/19/17 03:20 03:21 03:22 Temperature Pulse Rate 88 100 H Respiratory 20 Rate Blood Pressure 114/69 O2 Sat by Pulse 97 Oximetry 07/19/17 07/19/17 07/19/17 03:26 03:31 03:36 Temperature Pulse Rate 95 H 107 H 97 H Respiratory Rate Blood Pressure O2 Sat by Pulse 98 97 100 Oximetry 07/19/17 07/19/17 07/19/17 03:41 03:46 03:51 Temperature Pulse Rate 103 H 89 94 H Respiratory Rate Blood Pressure O2 Sat by Pulse 100 97 97 Oximetry 07/19/17 07/19/17 07/19/17 03:56 04:01 04:03 Temperature Pulse Rate 99 H 90 93 H Respiratory Rate Blood Pressure 106/61 O2 Sat by Pulse 97 97 Oximetry 07/19/17 07/19/17 07/19/17 04:06 04:11 04:16 Temperature Pulse Rate 89 89 87 Respiratory Rate Blood Pressure O2 Sat by Pulse 97 96 97 Oximetry 07/19/17 07/19/17 07/19/17 04:21 04:22 04:26 Temperature 98.4 F Pulse Rate 81 84 Respiratory 20 Rate Blood Pressure O2 Sat by Pulse 97 97 Oximetry 07/19/17 07/19/17 07/19/17 04:31 04:36 04:41 Temperature Pulse Rate 84 88 91 H Respiratory Rate Blood Pressure O2 Sat by Pulse 96 97 97 Oximetry 07/19/17 07/19/17 07/19/17 04:46 04:51 04:56 Temperature Pulse Rate 81 82 84 Respiratory Rate Blood Pressure O2 Sat by Pulse 97 96 96 Oximetry 07/19/17 07/19/17 07/19/17 05:01 05:06 05:11 Temperature Pulse Rate 82 87 86 Respiratory Rate Blood Pressure 103/66 O2 Sat by Pulse 97 97 96 Oximetry 07/19/17 07/19/17 07/19/17 05:16 05:21 05:25 Temperature Pulse Rate 90 86 88 Respiratory Rate Blood Pressure O2 Sat by Pulse 96 97 93 Oximetry 07/19/17 07/19/17 07/19/17 05:26 05:31 05:36 Temperature Pulse Rate 85 81 88 Respiratory Rate Blood Pressure O2 Sat by Pulse 96 96 97 Oximetry 07/19/17 07/19/17 07/19/17 05:41 05:46 05:51 Temperature Pulse Rate 89 94 H 81 Respiratory Rate Blood Pressure O2 Sat by Pulse 97 95 97 Oximetry 07/19/17 07/19/17 07/19/17 05:56 06:01 06:02 Temperature Pulse Rate 86 82 89 Respiratory Rate Blood Pressure O2 Sat by Pulse 96 98 88 Oximetry 07/19/17 07/19/17 07/19/17 06:06 06:11 06:16 Temperature Pulse Rate 85 83 86 Respiratory Rate Blood Pressure O2 Sat by Pulse 96 97 97 Oximetry 07/19/17 07/19/17 07/19/17 06:21 06:26 06:31 Temperature Pulse Rate 88 87 81 Respiratory Rate Blood Pressure O2 Sat by Pulse 97 98 96 Oximetry 07/19/17 07/19/17 07/19/17 06:36 06:41 06:43 Temperature Pulse Rate 84 85 94 H Respiratory Rate Blood Pressure O2 Sat by Pulse 97 97 94 Oximetry 07/19/17 07/19/17 07/19/17 06:46 06:51 06:56 Temperature Pulse Rate 86 84 82 Respiratory Rate Blood Pressure O2 Sat by Pulse 96 96 97 Oximetry 07/19/17 07/19/17 07/19/17 07:01 07:06 07:11 Temperature Pulse Rate 83 92 H 87 Respiratory Rate Blood Pressure 96/56 O2 Sat by Pulse 97 96 97 Oximetry 07/19/17 07/19/17 07/19/17 07:16 07:21 07:26 Temperature Pulse Rate 89 87 82 Respiratory Rate Blood Pressure O2 Sat by Pulse 97 97 98 Oximetry 07/19/17 07/19/17 07/19/17 07:31 07:36 07:41 Temperature Pulse Rate 82 95 H 81 Respiratory Rate Blood Pressure O2 Sat by Pulse 97 97 96 Oximetry 07/19/17 07/19/17 07/19/17 07:46 07:51 07:56 Temperature Pulse Rate 85 84 92 H Respiratory Rate Blood Pressure O2 Sat by Pulse 96 96 95 Oximetry 07/19/17 08:01 Temperature Pulse Rate 85 Respiratory Rate Blood Pressure 112/71 O2 Sat by Pulse 97 Oximetry - Exam Breasts: normal Cardiovascular: Regular rate Lungs: Clear to auscultation, Normal air movement Abdomen: Present: normal appearance, soft Vulva: both: normal Uterus: Present: normal FHR: auscultation normal, category 1 Uterine Contraction Monitor Mode: External Uterine Contraction Frequency (min): 5-12 Uterine Contraction Duration: 60 Uterine Contraction Pattern: Regular Uterine Tone Measurement Phase: Contraction Uterine Contraction Intensity: Moderate Extremities: normal Deep Tendon Reflex Grade: Normal +2 - Labs Labs: Abnormal Labs 07/18/17 07/18/17 07/19/17 16:30 18:03 01:00 Seg Neutrophils % 72.7 H Magnesium 6.70 H 4.70 H 07/19/17 05:20 Seg Neutrophils % Magnesium 5.80 H Laboratory Results - last 24 hr 07/18/17 07/18/17 07/18/17 12:31 13:55 16:30 WBC 7.1 RBC 4.23 Hgb 12.8 Hct 38.0 MCV 90 MCH 30 MCHC 34 RDW 13.2 Plt Count 140 Lymph % (Auto) 19.7 [place] % (Auto) 6.7 Eos % (Auto) 0.4 Baso % (Auto) 0.5 Lymph # 1.4 [place] # 0.5 Eos # 0.0 Baso # 0.0 Seg Neutrophils % 72.7 H Seg Neutrophils # 5.2 Magnesium Urine Color Yellow Urine Turbidity Clear Urine pH 7.0 Ur Specific [place] 1.009 Urine Protein <15 mg/dl Urine Glucose (UA) Neg Urine Ketones 20 Urine Blood Neg Urine Nitrite Neg Urine Bilirubin Neg Urine Urobilinogen < 2.0 Ur Leukocyte Esterase Sm Urine WBC (Auto) 1.0 Urine RBC (Auto) 3.0 U Epithel Cells (Auto) 2.0 Urine Bacteria (Auto) 1+ Fibronectin Positive Blood Type Antibody Screen 07/18/17 07/18/17 07/19/17 16:30 18:03 01:00 WBC RBC Hgb Hct MCV MCH MCHC RDW Plt Count Lymph % (Auto) [place] % (Auto) Eos % (Auto) Baso % (Auto) Lymph # [place] # Eos # Baso # Seg Neutrophils % Seg Neutrophils # Magnesium 6.70 H 4.70 H Urine Color Urine Turbidity Urine pH Ur Specific [place] Urine Protein Urine Glucose (UA) Urine Ketones Urine Blood Urine Nitrite Urine Bilirubin Urine Urobilinogen Ur Leukocyte Esterase Urine WBC (Auto) Urine RBC (Auto) U Epithel Cells (Auto) Urine Bacteria (Auto) Fibronectin Blood Type O POSITIVE Antibody Screen Negative 07/19/17 05:20 WBC RBC Hgb Hct MCV MCH MCHC RDW Plt Count Lymph % (Auto) [place] % (Auto) Eos % (Auto) Baso % (Auto) Lymph # [place] # Eos # Baso # Seg Neutrophils % Seg Neutrophils # Magnesium 5.80 H Urine Color Urine Turbidity Urine pH Ur Specific [place] Urine Protein Urine Glucose (UA) Urine Ketones Urine Blood Urine Nitrite Urine Bilirubin Urine Urobilinogen Ur Leukocyte Esterase Urine WBC (Auto) Urine RBC (Auto) U Epithel Cells (Auto) Urine Bacteria (Auto) Fibronectin Blood Type Antibody Screen
--- NOTE | 2017-07-19 09:05 | Progress Note ---
Assessment and Plan No cervical change noted since, SVE: cervix soft and midline, 3-4/60/-[address] Sanabria made aware. Plan for RN to recheck @ 1200, if any cervical change or an increase in ctx frequency/intensity - will proceed with c/s. Plan discussed with patient and family. All questions addressed. - Patient Problems (1) 30 weeks gestation of Current Visit: Yes Status: Acute (2) labor in third trimester Onset Date: 07/18/17 Current Visit: Yes Status: Acute Qualifiers: Fetus number: fetus 2 of multiple gestation (3) Twin gestation, dichorionic/diamniotic (two placentae, two amniotic sacs) Current Visit: Yes Status: Acute Qualifiers: Trimester: third trimester Qualified Code(s): O30.043 - Twin , dichorionic/diamniotic, third trimester Subjective - Subjective Date of service: 07/19/17 Principal diagnosis: IUP 30+4, labor, twins vtx/breech Interval history: EDC Confirmation: 09/23/2017 by 1st trimester u/s Past History : 5 Term Births: 3 Premature Births: 1 Living Children: 3 Para: 3 Mult. Births: 0 Prev : 0 Prev. attempt? 0 Aborta: 1 Elect. Ab: 0 Spont. Ab: 1 Ectopics: 0 # 1 Delivery date: 08/2005 Weeks Gestation: 34 labor: yes Delivery type: Anesthesia type: epidural Delivery location: [facility] Sex: Female weight: 6-7 Comments: dilated ctx # 2 Delivery date: 05/2007 Weeks Gestation: 40 Delivery type: Anesthesia type: epidural Delivery location: [facility] Infant Sex: Male weight: 7-4 # 3 Delivery date: 04/2012 Delivery type: MAB Comments: cytotec # 4 Delivery date: 01/11/2014 Weeks Gestation: 40 Delivery type: Vaginal Anesthesia type: epidural Delivery location: [facility] Infant Sex: male weight: 7.69 Past Medical History: Nora Chopra (2016) Past Surgical History: Reviewed history from 05/10/2015 and no changes required: cervical cryoablation 2006 Family History Summary: Mother (biol.) - Has Family History of Diabetes - Entered On: 01/24/2017 Other family member - Has Family History of Depression - Entered On: 01/24/2017 General Comments - FH: Family History of Hypertension Social History: Reviewed history from 10/26/2014 and no changes required: non smoker Patient is Smoking History: Patient has never smoked. 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 Genetic History Congenital Heart Defect: Mom: no Dad: no Adriane Disease: Mom: no Dad: no Thalassemia Mom: no Dad: no Neural Tube Defect Mom: no Dad: no Down's Syndrome Mom: no Dad: no Michael-Sachs Mom: no Dad: no Sickle Cell Disease/Trait Mom: no Dad: no Hemophilia Mom: no Dad: no Muscular Dystrophy Mom: no Dad: no Cystic Fibrosis Mom: no Dad: no [place] Chorea Mom: no Dad: no Mental Retardation Mom: no Dad: no Fragile X Mom: no Dad: no Other Genetic/Chromosomal Disorder Mom: no Dad: no Child w/other defect Mom: no Dad: no Enviromental Exposures Xray Exposure: no Medication, drug, or alcohol use since LMP: no Chemical/Other Exposure: no Exposure to Cat Liter: no Hx of Parvovirus (Fifth Disease): no Active Medications (reviewed today): PROMETHAZINE HCL 25 MG ORAL TABS (PROMETHAZINE HCL) 1 tab q 4 to 6 h prn nausea IBUPROFEN () Current Allergies (reviewed today): BENADRYL (Critical) * LATEX (Critical) Patient reports: movement normal, contractions, no new complaints, no loss of fluid, no vaginal bleeding Objective - Vital Signs Vital Signs: Vital Signs - 12hr 07/18/17 07/18/17 07/18/17 20:58 21:00 21:03 Temperature Pulse Rate 103 H 90 90 Respiratory Rate Blood Pressure 109/61 Blood Pressure [Left] O2 Sat by Pulse 98 98 Oximetry 07/18/17 07/18/17 07/18/17 21:08 21:13 21:15 Temperature Pulse Rate 103 H 85 85 Respiratory Rate Blood Pressure 96/55 Blood Pressure [Left] O2 Sat by Pulse 98 96 Oximetry 07/18/17 07/18/17 07/18/17 21:18 21:23 21:28 Temperature Pulse Rate 89 89 85 Respiratory Rate Blood Pressure Blood Pressure [Left] O2 Sat by Pulse 96 95 97 Oximetry 07/18/17 07/18/17 07/18/17 21:30 21:33 21:38 Temperature Pulse Rate 88 87 84 Respiratory Rate Blood Pressure 99/58 Blood Pressure [Left] O2 Sat by Pulse 96 96 Oximetry 07/18/17 07/18/17 07/18/17 21:43 21:45 21:48 Temperature Pulse Rate 87 90 89 Respiratory Rate Blood Pressure 98/53 Blood Pressure [Left] O2 Sat by Pulse 97 97 Oximetry 07/18/17 07/18/17 07/18/17 21:53 21:58 22:00 Temperature Pulse Rate 90 97 H 78 Respiratory Rate Blood Pressure 104/61 Blood Pressure [Left] O2 Sat by Pulse 97 98 94 Oximetry 07/18/17 07/18/17 07/18/17 22:03 22:08 22:13 Temperature Pulse Rate 88 97 H 86 Respiratory Rate Blood Pressure Blood Pressure [Left] O2 Sat by Pulse 96 95 97 Oximetry 07/18/17 07/18/17 07/18/17 22:17 22:18 22:23 Temperature Pulse Rate 87 86 88 Respiratory Rate Blood Pressure 97/58 Blood Pressure [Left] O2 Sat by Pulse 97 97 Oximetry 07/18/17 07/18/17 07/18/17 22:28 22:32 22:33 Temperature Pulse Rate 84 89 92 H Respiratory Rate Blood Pressure 97/56 Blood Pressure [Left] O2 Sat by Pulse 96 93 96 Oximetry 07/18/17 07/18/17 07/18/17 22:38 22:43 22:45 Temperature Pulse Rate 95 H 89 95 H Respiratory Rate Blood Pressure 99/56 Blood Pressure [Left] O2 Sat by Pulse 97 97 Oximetry 07/18/17 07/18/17 07/18/17 22:48 22:53 22:58 Temperature Pulse Rate 88 92 H 94 H Respiratory Rate Blood Pressure Blood Pressure [Left] O2 Sat by Pulse 96 96 96 Oximetry 07/18/17 07/18/17 07/18/17 23:00 23:03 23:08 Temperature Pulse Rate 91 H 91 H 91 H Respiratory Rate Blood Pressure 96/52 Blood Pressure [Left] O2 Sat by Pulse 96 96 Oximetry 07/18/17 07/18/17 07/18/17 23:13 23:15 23:18 Temperature Pulse Rate 82 83 92 H Respiratory Rate Blood Pressure 102/60 Blood Pressure [Left] O2 Sat by Pulse 97 97 Oximetry 07/18/17 07/18/17 07/18/17 23:23 23:28 23:30 Temperature Pulse Rate 92 H 95 H 96 H Respiratory Rate Blood Pressure 92/55 Blood Pressure [Left] O2 Sat by Pulse 97 97 Oximetry 07/18/17 07/18/17 07/18/17 23:33 23:38 23:43 Temperature Pulse Rate 94 H 91 H 92 H Respiratory Rate Blood Pressure Blood Pressure [Left] O2 Sat by Pulse 97 97 96 Oximetry 07/18/17 07/19/17 07/19/17 23:46 00:00 00:05 Temperature 97.9 F Pulse Rate 89 83 82 Respiratory 18 Rate Blood Pressure 101/58 Blood Pressure [Left] O2 Sat by Pulse 93 97 97 Oximetry 07/19/17 07/19/17 07/19/17 00:10 00:15 00:20 Temperature Pulse Rate 86 86 87 Respiratory Rate Blood Pressure Blood Pressure [Left] O2 Sat by Pulse 97 97 97 Oximetry 07/19/17 07/19/17 07/19/17 00:25 00:30 00:35 Temperature Pulse Rate 85 86 85 Respiratory Rate Blood Pressure Blood Pressure [Left] O2 Sat by Pulse 97 97 97 Oximetry 07/19/17 07/19/17 07/19/17 00:40 00:45 00:50 Temperature Pulse Rate 85 84 85 Respiratory Rate Blood Pressure Blood Pressure [Left] O2 Sat by Pulse 96 97 97 Oximetry 07/19/17 07/19/17 07/19/17 00:55 01:00 01:02 Temperature Pulse Rate 86 86 83 Respiratory Rate Blood Pressure 99/55 Blood Pressure [Left] O2 Sat by Pulse 97 97 Oximetry 07/19/17 07/19/17 07/19/17 01:05 01:10 01:15 Temperature Pulse Rate 95 H 96 H 85 Respiratory Rate Blood Pressure Blood Pressure [Left] O2 Sat by Pulse 96 97 98 Oximetry 07/19/17 07/19/17 07/19/17 01:22 01:23 01:28 Temperature Pulse Rate 107 H 100 H 77 Respiratory Rate Blood Pressure Blood Pressure [Left] O2 Sat by Pulse 89 94 98 Oximetry 07/19/17 07/19/17 07/19/17 01:33 01:38 01:43 Temperature Pulse Rate 85 83 89 Respiratory Rate Blood Pressure Blood Pressure [Left] O2 Sat by Pulse 97 96 96 Oximetry 07/19/17 07/19/17 07/19/17 01:48 01:53 01:58 Temperature Pulse Rate 89 91 H 87 Respiratory Rate Blood Pressure Blood Pressure [Left] O2 Sat by Pulse 97 96 96 Oximetry 07/19/17 07/19/17 07/19/17 02:01 02:03 02:08 Temperature Pulse Rate 84 86 88 Respiratory Rate Blood Pressure 99/57 Blood Pressure [Left] O2 Sat by Pulse 96 95 Oximetry 07/19/17 07/19/17 07/19/17 02:13 02:18 02:23 Temperature Pulse Rate 88 94 H 91 H Respiratory Rate Blood Pressure Blood Pressure [Left] O2 Sat by Pulse 95 95 95 Oximetry 07/19/17 07/19/17 07/19/17 02:28 02:29 02:33 Temperature Pulse Rate 95 H 96 H 92 H Respiratory Rate Blood Pressure Blood Pressure [Left] O2 Sat by Pulse 95 94 97 Oximetry 07/19/17 07/19/17 07/19/17 02:38 02:43 02:48 Temperature Pulse Rate 92 H 93 H 95 H Respiratory Rate Blood Pressure Blood Pressure [Left] O2 Sat by Pulse 98 97 97 Oximetry 07/19/17 07/19/17 07/19/17 02:53 03:06 03:11 Temperature Pulse Rate 86 91 H 93 H Respiratory Rate Blood Pressure Blood Pressure [Left] O2 Sat by Pulse 97 99 99 Oximetry 07/19/17 07/19/17 07/19/17 03:16 03:20 03:21 Temperature Pulse Rate 93 H 88 Respiratory 20 Rate Blood Pressure Blood Pressure [Left] O2 Sat by Pulse 99 97 Oximetry 07/19/17 07/19/17 07/19/17 03:22 03:26 03:31 Temperature Pulse Rate 100 H 95 H 107 H Respiratory Rate Blood Pressure 114/69 Blood Pressure [Left] O2 Sat by Pulse 98 97 Oximetry 07/19/17 07/19/17 07/19/17 03:36 03:41 03:46 Temperature Pulse Rate 97 H 103 H 89 Respiratory Rate Blood Pressure Blood Pressure [Left] O2 Sat by Pulse 100 100 97 Oximetry 07/19/17 07/19/17 07/19/17 03:51 03:56 04:01 Temperature Pulse Rate 94 H 99 H 90 Respiratory Rate Blood Pressure Blood Pressure [Left] O2 Sat by Pulse 97 97 97 Oximetry 07/19/17 07/19/17 07/19/17 04:03 04:06 04:11 Temperature Pulse Rate 93 H 89 89 Respiratory Rate Blood Pressure 106/61 Blood Pressure [Left] O2 Sat by Pulse 97 96 Oximetry 07/19/17 07/19/17 07/19/17 04:16 04:21 04:22 Temperature 98.4 F Pulse Rate 87 81 Respiratory 20 Rate Blood Pressure Blood Pressure [Left] O2 Sat by Pulse 97 97 Oximetry 07/19/17 07/19/17 07/19/17 04:26 04:31 04:36 Temperature Pulse Rate 84 84 88 Respiratory Rate Blood Pressure Blood Pressure [Left] O2 Sat by Pulse 97 96 97 Oximetry 07/19/17 07/19/17 07/19/17 04:41 04:46 04:51 Temperature Pulse Rate 91 H 81 82 Respiratory Rate Blood Pressure Blood Pressure [Left] O2 Sat by Pulse 97 97 96 Oximetry 07/19/17 07/19/17 07/19/17 04:56 05:01 05:06 Temperature Pulse Rate 84 82 87 Respiratory Rate Blood Pressure 103/66 Blood Pressure [Left] O2 Sat by Pulse 96 97 97 Oximetry 07/19/17 07/19/17 07/19/17 05:11 05:16 05:21 Temperature Pulse Rate 86 90 86 Respiratory Rate Blood Pressure Blood Pressure [Left] O2 Sat by Pulse 96 96 97 Oximetry 07/19/17 07/19/17 07/19/17 05:25 05:26 05:31 Temperature Pulse Rate 88 85 81 Respiratory Rate Blood Pressure Blood Pressure [Left] O2 Sat by Pulse 93 96 96 Oximetry 07/19/17 07/19/17 07/19/17 05:36 05:41 05:46 Temperature Pulse Rate 88 89 94 H Respiratory Rate Blood Pressure Blood Pressure [Left] O2 Sat by Pulse 97 97 95 Oximetry 07/19/17 07/19/17 07/19/17 05:51 05:56 06:01 Temperature Pulse Rate 81 86 82 Respiratory Rate Blood Pressure Blood Pressure [Left] O2 Sat by Pulse 97 96 98 Oximetry 07/19/17 07/19/17 07/19/17 06:02 06:06 06:11 Temperature Pulse Rate 89 85 83 Respiratory Rate Blood Pressure Blood Pressure [Left] O2 Sat by Pulse 88 96 97 Oximetry 07/19/17 07/19/17 07/19/17 06:16 06:21 06:26 Temperature Pulse Rate 86 88 87 Respiratory Rate Blood Pressure Blood Pressure [Left] O2 Sat by Pulse 97 97 98 Oximetry 07/19/17 07/19/17 07/19/17 06:31 06:36 06:41 Temperature Pulse Rate 81 84 85 Respiratory Rate Blood Pressure Blood Pressure [Left] O2 Sat by Pulse 96 97 97 Oximetry 07/19/17 07/19/17 07/19/17 06:43 06:46 06:51 Temperature Pulse Rate 94 H 86 84 Respiratory Rate Blood Pressure Blood Pressure [Left] O2 Sat by Pulse 94 96 96 Oximetry 07/19/17 07/19/17 07/19/17 06:56 07:01 07:06 Temperature Pulse Rate 82 83 92 H Respiratory Rate Blood Pressure 96/56 Blood Pressure [Left] O2 Sat by Pulse 97 97 96 Oximetry 07/19/17 07/19/17 07/19/17 07:11 07:16 07:21 Temperature Pulse Rate 87 89 87 Respiratory Rate Blood Pressure Blood Pressure [Left] O2 Sat by Pulse 97 97 97 Oximetry 07/19/17 07/19/17 07/19/17 07:26 07:31 07:36 Temperature Pulse Rate 82 82 95 H Respiratory Rate Blood Pressure Blood Pressure [Left] O2 Sat by Pulse 98 97 97 Oximetry 07/19/17 07/19/17 07/19/17 07:41 07:46 07:51 Temperature Pulse Rate 81 85 84 Respiratory Rate Blood Pressure Blood Pressure [Left] O2 Sat by Pulse 96 96 96 Oximetry 07/19/17 07/19/17 07/19/17 07:56 08:01 08:06 Temperature Pulse Rate 92 H 85 85 Respiratory Rate Blood Pressure 112/71 Blood Pressure [Left] O2 Sat by Pulse 95 97 98 Oximetry 07/19/17 07/19/17 07/19/17 08:11 08:16 08:23 Temperature 97.2 F L Pulse Rate 85 86 44 L Respiratory 13 Rate Blood Pressure Blood Pressure 112/7 [Left] O2 Sat by Pulse 97 97 73 L Oximetry 07/19/17 07/19/17 07/19/17 08:24 08:29 08:34 Temperature Pulse Rate 90 88 92 H Respiratory Rate Blood Pressure Blood Pressure [Left] O2 Sat by Pulse 97 97 97 Oximetry 07/19/17 07/19/17 07/19/17 08:39 08:44 08:49 Temperature Pulse Rate 89 91 H 87 Respiratory Rate Blood Pressure Blood Pressure [Left] O2 Sat by Pulse 98 98 98 Oximetry 07/19/17 08:54 Temperature Pulse Rate 84 Respiratory Rate Blood Pressure Blood Pressure [Left] O2 Sat by Pulse 98 Oximetry - Exam Cardiovascular: Regular rate Lungs: Clear to auscultation, Normal air movement Abdomen: Present: normal appearance Vulva: both: normal Uterus: Present: normal FHR: category 1 Uterine Contraction Monitor Mode: External Cervical Dilatation: 3.5 Cervical Effacement Percentage: 60 station: -2 Uterine Contraction Frequency (min): 8-12 Uterine Contraction Duration: 60 Uterine Contraction Pattern: Regular Uterine Tone Measurement Phase: Contraction Uterine Contraction Intensity: Mild Extremities: normal Deep Tendon Reflex Grade: Normal +2 - Labs Labs: Abnormal Labs 07/18/17 07/18/17 07/19/17 16:30 18:03 01:00 Seg Neutrophils % 72.7 H Magnesium 6.70 H 4.70 H 07/19/17 05:20 Seg Neutrophils % Magnesium 5.80 H Laboratory Results - last 24 hr 07/18/17 07/18/17 07/18/17 12:31 13:55 16:30 WBC 7.1 RBC 4.23 Hgb 12.8 Hct 38.0 MCV 90 MCH 30 MCHC 34 RDW 13.2 Plt Count 140 Lymph % (Auto) 19.7 [place] % (Auto) 6.7 Eos % (Auto) 0.4 Baso % (Auto) 0.5 Lymph # 1.4 [place] # 0.5 Eos # 0.0 Baso # 0.0 Seg Neutrophils % 72.7 H Seg Neutrophils # 5.2 Magnesium Urine Color Yellow Urine Turbidity Clear Urine pH 7.0 Ur Specific [place] 1.009 Urine Protein <15 mg/dl Urine Glucose (UA) Neg Urine Ketones 20 Urine Blood Neg Urine Nitrite Neg Urine Bilirubin Neg Urine Urobilinogen < 2.0 Ur Leukocyte Esterase Sm Urine WBC (Auto) 1.0 Urine RBC (Auto) 3.0 U Epithel Cells (Auto) 2.0 Urine Bacteria (Auto) 1+ Fibronectin Positive Blood Type Antibody Screen 07/18/17 07/18/17 07/19/17 16:30 18:03 01:00 WBC RBC Hgb Hct MCV MCH MCHC RDW Plt Count Lymph % (Auto) [place] % (Auto) Eos % (Auto) Baso % (Auto) Lymph # [place] # Eos # Baso # Seg Neutrophils % Seg Neutrophils # Magnesium 6.70 H 4.70 H Urine Color Urine Turbidity Urine pH Ur Specific [place] Urine Protein Urine Glucose (UA) Urine Ketones Urine Blood Urine Nitrite Urine Bilirubin Urine Urobilinogen Ur Leukocyte Esterase Urine WBC (Auto) Urine RBC (Auto) U Epithel Cells (Auto) Urine Bacteria (Auto) Fibronectin Blood Type O POSITIVE Antibody Screen Negative 07/19/17 05:20 WBC RBC Hgb Hct MCV MCH MCHC RDW Plt Count Lymph % (Auto) [place] % (Auto) Eos % (Auto) Baso % (Auto) Lymph # [place] # Eos # Baso # Seg Neutrophils % Seg Neutrophils # Magnesium 5.80 H Urine Color Urine Turbidity Urine pH Ur Specific [place] Urine Protein Urine Glucose (UA) Urine Ketones Urine Blood Urine Nitrite Urine Bilirubin Urine Urobilinogen Ur Leukocyte Esterase Urine WBC (Auto) Urine RBC (Auto) U Epithel Cells (Auto) Urine Bacteria (Auto) Fibronectin Blood Type Antibody Screen
[2017-07-19] MEDS: HALFPRIN EC PO SCH (10:51)
[2017-07-19] MEDS: PRENATAL VITAMIN PO SCH (10:53)
--- NOTE | 2017-07-19 17:00 | Event Note ---
Date: 07/19/17 Pt sherine less than 6 X hour at present on 2gm infusion of Mag. Plan is to continue Mag until 48 hours post 1st dose of steroids and then switch to po Procardia 10mg po q 6-8 hours. If Mag stopped then will need to rebolus Mag for neuro protection prior to c/s delivery.
[2017-07-19] MEDS: TYLENOL PO PRN (18:29)
[2017-07-20] MEDS: POLYCILLIN/NS 1 GM/50 ML 1 GM/50 ML BAG IV SCH ×5 (00:18→21:26)
[2017-07-20] MEDS: STADOL IV PRN (05:13)
--- NOTE | 2017-07-20 08:58 | Event Note ---
Date: 07/20/17 26 yo A1 di/di twin gestation now at 30 wk 5 d today admitted for management of labor and cervical change. She is currently on infusion of Mag at 2 gm/hr and has now completed steroids. I spoke to nurse Octavia, very few contractions currently. Last Mag level was 7.4. Patient was checked last night (no change) for c/o back pain which responded to positional changes and Tylenol. Now at 24 hours post second dose of steroids we will d/c Mag and convert to po nifedipine for continued tocolysis and allow pt to eat. Plan is for c/s and BTL for delivery with vertex/breech 30 wk twins when pt experiences labor or cervical change.
[2017-07-20] MEDS: PROCARDIA*For Tocolysis only PO SCH ×3 (09:15→21:26)
[2017-07-20] MEDS: HALFPRIN EC PO SCH (10:30)
[2017-07-20] MEDS: PRENATAL VITAMIN PO SCH (10:30)
--- NOTE | 2017-07-20 12:03 | Progress Note ---
Assessment and Plan - Patient Problems (1) labor in third trimester Onset Date: 07/18/17 Current Visit: Yes Status: Acute Qualifiers: Fetus number: fetus 2 of multiple gestation Plan to address problem: Currently stable, off Mag, on Procardia (2) 30 weeks gestation of Current Visit: Yes Status: Acute (3) Twin gestation, dichorionic/diamniotic (two placentae, two amniotic sacs) Current Visit: Yes Status: Acute Qualifiers: Trimester: third trimester Qualified Code(s): O30.043 - Twin , dichorionic/diamniotic, third trimester Subjective - Subjective Date of service: 07/20/17 Principal diagnosis: IUP 30+5, labor, twins vtx/breech Interval history: No new c/o, nurse says exam looks like yeast infection with pink tinge so will tx with fluconazole since is 3 cm dilated. Discussed management plan with patient and SO, they agree with and understand the goals of treatment. Patient does want BTL with c/s. Says last weight was 2#8oz a few weeks ago. Currently seems stable with minimal contractions and uterus is not irritable to palpation. Patient reports: movement normal, contractions (minimal), no new complaints, no loss of fluid, no vaginal bleeding Objective - Vital Signs Vital Signs: Vital Signs - 12hr 07/20/17 07/20/17 07/20/17 00:00 00:02 00:06 Temperature 97.6 F Pulse Rate 86 86 91 H Respiratory Rate Blood Pressure 91/56 Blood Pressure 91/56 [Left] O2 Sat by Pulse 97 Oximetry 07/20/17 07/20/17 07/20/17 00:11 00:16 00:21 Temperature Pulse Rate 89 88 86 Respiratory Rate Blood Pressure Blood Pressure [Left] O2 Sat by Pulse 97 97 97 Oximetry 07/20/17 07/20/17 07/20/17 00:27 00:32 00:37 Temperature Pulse Rate 95 H 85 88 Respiratory Rate Blood Pressure Blood Pressure [Left] O2 Sat by Pulse 98 97 97 Oximetry 07/20/17 07/20/17 07/20/17 00:42 00:47 00:52 Temperature Pulse Rate 88 86 87 Respiratory Rate Blood Pressure Blood Pressure [Left] O2 Sat by Pulse 97 96 97 Oximetry 07/20/17 07/20/17 07/20/17 00:57 01:00 01:01 Temperature 98.4 F Pulse Rate 86 86 86 Respiratory Rate Blood Pressure 96/54 Blood Pressure 96/54 [Left] O2 Sat by Pulse 96 Oximetry 07/20/17 07/20/17 07/20/17 01:02 01:07 01:12 Temperature Pulse Rate 86 87 85 Respiratory Rate Blood Pressure Blood Pressure [Left] O2 Sat by Pulse 96 97 97 Oximetry 07/20/17 07/20/17 07/20/17 01:17 01:22 01:27 Temperature Pulse Rate 88 89 88 Respiratory Rate Blood Pressure Blood Pressure [Left] O2 Sat by Pulse 96 96 96 Oximetry 07/20/17 07/20/17 07/20/17 01:32 01:37 01:42 Temperature Pulse Rate 87 87 85 Respiratory Rate Blood Pressure Blood Pressure [Left] O2 Sat by Pulse 96 96 97 Oximetry 07/20/17 07/20/17 07/20/17 01:47 01:52 01:57 Temperature Pulse Rate 87 84 85 Respiratory Rate Blood Pressure Blood Pressure [Left] O2 Sat by Pulse 97 97 97 Oximetry 07/20/17 07/20/17 07/20/17 02:01 02:02 02:07 Temperature Pulse Rate 86 88 86 Respiratory Rate Blood Pressure 98/59 Blood Pressure [Left] O2 Sat by Pulse 97 96 Oximetry 07/20/17 07/20/17 07/20/17 02:12 02:17 02:22 Temperature Pulse Rate 89 86 91 H Respiratory Rate Blood Pressure Blood Pressure [Left] O2 Sat by Pulse 97 96 97 Oximetry 07/20/17 07/20/17 07/20/17 02:27 02:32 02:37 Temperature Pulse Rate 82 84 84 Respiratory Rate Blood Pressure Blood Pressure [Left] O2 Sat by Pulse 98 98 97 Oximetry 07/20/17 07/20/17 07/20/17 02:42 02:47 02:52 Temperature Pulse Rate 86 84 89 Respiratory Rate Blood Pressure Blood Pressure [Left] O2 Sat by Pulse 97 97 97 Oximetry 07/20/17 07/20/17 07/20/17 02:57 03:01 03:02 Temperature Pulse Rate 85 90 87 Respiratory Rate Blood Pressure 96/59 Blood Pressure [Left] O2 Sat by Pulse 97 98 Oximetry 07/20/17 07/20/17 07/20/17 03:07 03:12 03:17 Temperature Pulse Rate 92 H 96 H 86 Respiratory Rate Blood Pressure Blood Pressure [Left] O2 Sat by Pulse 98 97 98 Oximetry 07/20/17 07/20/17 07/20/17 03:22 03:27 03:32 Temperature Pulse Rate 89 86 88 Respiratory Rate Blood Pressure Blood Pressure [Left] O2 Sat by Pulse 97 97 97 Oximetry 07/20/17 07/20/17 07/20/17 03:37 03:42 03:47 Temperature Pulse Rate 79 84 85 Respiratory Rate Blood Pressure Blood Pressure [Left] O2 Sat by Pulse 99 98 98 Oximetry 07/20/17 07/20/17 07/20/17 03:52 03:57 04:02 Temperature Pulse Rate 87 93 H 89 Respiratory Rate Blood Pressure 99/56 Blood Pressure [Left] O2 Sat by Pulse 98 98 98 Oximetry 07/20/17 07/20/17 07/20/17 04:07 04:12 04:17 Temperature Pulse Rate 86 89 89 Respiratory Rate Blood Pressure Blood Pressure [Left] O2 Sat by Pulse 98 98 98 Oximetry 07/20/17 07/20/17 07/20/17 04:22 04:27 04:32 Temperature Pulse Rate 88 85 87 Respiratory Rate Blood Pressure Blood Pressure [Left] O2 Sat by Pulse 98 97 97 Oximetry 07/20/17 07/20/17 07/20/17 04:37 04:42 04:47 Temperature Pulse Rate 88 95 H 92 H Respiratory Rate Blood Pressure Blood Pressure [Left] O2 Sat by Pulse 97 98 97 Oximetry 07/20/17 07/20/17 07/20/17 05:00 05:31 05:36 Temperature 98.0 F Pulse Rate 82 82 83 Respiratory 18 Rate Blood Pressure 97/53 Blood Pressure 97/53 [Left] O2 Sat by Pulse 97 96 Oximetry 07/20/17 07/20/17 07/20/17 05:41 05:46 05:51 Temperature Pulse Rate 82 85 82 Respiratory Rate Blood Pressure Blood Pressure [Left] O2 Sat by Pulse 96 96 97 Oximetry 07/20/17 07/20/17 07/20/17 05:56 06:01 06:06 Temperature Pulse Rate 80 82 82 Respiratory Rate Blood Pressure 93/53 Blood Pressure [Left] O2 Sat by Pulse 97 96 96 Oximetry 07/20/17 07/20/17 07/20/17 06:11 06:16 06:21 Temperature Pulse Rate 84 82 84 Respiratory Rate Blood Pressure Blood Pressure [Left] O2 Sat by Pulse 96 96 95 Oximetry 07/20/17 07/20/17 07/20/17 06:26 06:31 06:36 Temperature Pulse Rate 82 83 80 Respiratory Rate Blood Pressure Blood Pressure [Left] O2 Sat by Pulse 96 96 96 Oximetry 07/20/17 07/20/17 07/20/17 06:41 06:46 06:51 Temperature Pulse Rate 85 87 82 Respiratory Rate Blood Pressure Blood Pressure [Left] O2 Sat by Pulse 96 96 96 Oximetry 07/20/17 07/20/17 07/20/17 06:56 07:01 07:06 Temperature Pulse Rate 82 80 85 Respiratory Rate Blood Pressure 96/51 Blood Pressure [Left] O2 Sat by Pulse 96 97 96 Oximetry 07/20/17 07/20/17 07/20/17 07:11 07:16 07:21 Temperature Pulse Rate 86 83 84 Respiratory Rate Blood Pressure Blood Pressure [Left] O2 Sat by Pulse 96 96 96 Oximetry 07/20/17 07/20/17 07/20/17 07:26 07:31 07:36 Temperature Pulse Rate 84 93 H 79 Respiratory Rate Blood Pressure Blood Pressure [Left] O2 Sat by Pulse 96 97 96 Oximetry 07/20/17 07/20/17 07/20/17 07:41 07:46 07:51 Temperature Pulse Rate 77 81 81 Respiratory Rate Blood Pressure Blood Pressure [Left] O2 Sat by Pulse 96 96 96 Oximetry 07/20/17 07/20/17 07/20/17 07:56 08:01 08:02 Temperature Pulse Rate 78 81 78 Respiratory Rate Blood Pressure 93/55 Blood Pressure [Left] O2 Sat by Pulse 96 96 94 Oximetry 07/20/17 07/20/17 07/20/17 08:06 08:11 08:16 Temperature Pulse Rate 82 82 84 Respiratory Rate Blood Pressure Blood Pressure [Left] O2 Sat by Pulse 96 96 96 Oximetry 07/20/17 07/20/17 07/20/17 08:21 08:26 08:31 Temperature Pulse Rate 78 109 H 87 Respiratory Rate Blood Pressure Blood Pressure [Left] O2 Sat by Pulse 96 93 97 Oximetry 07/20/17 08:32 Temperature Pulse Rate 81 Respiratory Rate Blood Pressure 102/57 Blood Pressure [Left] O2 Sat by Pulse 94 Oximetry - Exam Breasts: deferred Cardiovascular: Regular rate Abdomen: Present: normal appearance, soft. Absent: tenderness FHR: category 1 Uterine Contraction Monitor Mode: External Uterine Contraction Pattern: Absent (rare contractions, Mag off for 4 hours) Uterine Tone Measurement Phase: Resting Uterine Contraction Intensity: Mild Extremities: normal - Labs Labs: Abnormal Labs 07/18/17 07/18/17 07/19/17 16:30 18:03 01:00 Seg Neutrophils % 72.7 H Magnesium 6.70 H 4.70 H 07/19/17 07/19/17 07/19/17 05:20 14:08 15:30 Seg Neutrophils % Magnesium 5.80 H 6.30 H 6.50 H 07/19/17 07/20/17 07/20/17 19:22 00:23 06:00 Seg Neutrophils % Magnesium 6.50 H 7.00 H 7.20 H Laboratory Results - last 24 hr 07/19/17 07/19/17 07/19/17 14:08 15:30 19:22 Magnesium 6.30 H 6.50 H 6.50 H 07/20/17 07/20/17 00:23 06:00 Magnesium 7.00 H 7.20 H
[2017-07-20] MEDS ORDERED: DIFLUCAN PO ONE (12:58)
[2017-07-20] MEDS: LACTATED RINGERS 1,000 ML IV SCH (17:20)
[2017-07-20] MEDS ORDERED: AMBIEN PO PRN (23:16)
[2017-07-21] MEDS: POLYCILLIN/NS 1 GM/50 ML 1 GM/50 ML BAG IV SCH ×2 (01:34→05:28)
[2017-07-21] MEDS: PROCARDIA*For Tocolysis only PO SCH ×2 (03:03→09:17)
[2017-07-21] MEDS: LACTATED RINGERS 1,000 ML IV SCH (03:04)
--- NOTE | 2017-07-21 05:56 | Progress Note ---
Assessment and Plan - Patient Problems (1) labor in third trimester Onset Date: 07/18/17 Current Visit: Yes Status: Acute Qualifiers: Fetus number: fetus 2 of multiple gestation Plan to address problem: Completed BMZ. Procardia working well to quiet uterus. Good FM reported by pt. Denies LOF, no bleeding. Will consult with Dr. Claire for possible d/c home. (2) Twin gestation, dichorionic/diamniotic (two placentae, two amniotic sacs) Current Visit: Yes Status: Acute Qualifiers: Trimester: third trimester Qualified Code(s): O30.043 - Twin , dichorionic/diamniotic, third trimester Plan to address problem: Pt reports good FM Subjective - Subjective Date of service: 07/21/17 (pt w/o complaint ) Principal diagnosis: IUP 30+6, labor, twins vtx/breech Patient reports: movement normal, contractions (pt denies feeling any ctx ; only occassional cramping), no new complaints, no loss of fluid, no vaginal bleeding Objective - Vital Signs Vital Signs: Vital Signs - 12hr 07/20/17 07/20/17 07/20/17 19:34 19:36 19:37 Temperature 99 F Pulse Rate 85 88 85 Respiratory 18 Rate Blood Pressure 82/50 87/53 Blood Pressure 87/53 [Left] O2 Sat by Pulse Oximetry 07/20/17 07/20/17 07/20/17 21:31 21:43 21:48 Temperature Pulse Rate 85 88 82 Respiratory Rate Blood Pressure 95/52 Blood Pressure [Left] O2 Sat by Pulse 98 98 Oximetry 07/20/17 07/20/17 07/20/17 21:53 21:58 22:03 Temperature Pulse Rate 84 79 84 Respiratory Rate Blood Pressure Blood Pressure [Left] O2 Sat by Pulse 98 97 96 Oximetry 07/20/17 07/20/17 07/20/17 22:08 22:13 22:18 Temperature Pulse Rate 89 91 H 97 H Respiratory Rate Blood Pressure Blood Pressure [Left] O2 Sat by Pulse 98 97 98 Oximetry 07/20/17 07/20/17 07/20/17 22:23 22:28 22:33 Temperature Pulse Rate 95 H 98 H 97 H Respiratory Rate Blood Pressure Blood Pressure [Left] O2 Sat by Pulse 96 97 96 Oximetry 01/07/20/17 07/20/17 22:38 22:43 22:48 Temperature Pulse Rate 98 H 99 H 102 H Respiratory Rate Blood Pressure Blood Pressure [Left] O2 Sat by Pulse 96 96 96 Oximetry 07/20/17 07/21/17 07/21/17 22:53 03:04 03:05 Temperature Pulse Rate 99 H 83 82 Respiratory Rate Blood Pressure 87/53 87/54 Blood Pressure [Left] O2 Sat by Pulse 97 Oximetry 07/21/17 03:07 Temperature Pulse Rate 93 H Respiratory Rate Blood Pressure 95/54 Blood Pressure [Left] O2 Sat by Pulse Oximetry - Exam Breasts: deferred Cardiovascular: Regular rate Lungs: Clear to auscultation, Normal air movement Abdomen: Present: normal appearance, soft. Absent: distention, tenderness Vulva: both: normal Uterus: Present: normal FHR: auscultation normal, category 1 (NST reactive) Uterine Contraction Monitor Mode: External Uterine Contraction Pattern: Irregular Uterine Contraction Intensity: Mild Extremities: normal Deep Tendon Reflex Grade: Normal +2 - Labs Labs: Abnormal Labs 07/18/17 07/18/17 07/19/17 16:30 18:03 01:00 Seg Neutrophils % 72.7 H Magnesium 6.70 H 4.70 H 07/19/17 07/19/17 07/19/17 05:20 14:08 15:30 Seg Neutrophils % Magnesium 5.80 H 6.30 H 6.50 H 07/19/17 07/20/17 07/20/17 19:22 00:23 06:00 Seg Neutrophils % Magnesium 6.50 H 7.00 H 7.20 H Laboratory Results - last 24 hr 07/20/17 06:00 Magnesium 7.20 H
[2017-07-21 07:59] VITALS: BP 90/52
[2017-07-21] MEDS: TYLENOL PO PRN (08:19)
[2017-07-21] MEDS: PRENATAL VITAMIN PO SCH (09:17)
[2017-07-21] MEDS: HALFPRIN EC PO SCH (09:18)
--- NOTE | 2017-07-21 12:07 | Discharge Summary ---
Providers - Providers Date of Admission: 07/18/17 16:12 Date of discharge: 07/21/17 (consulted with ; Pt agrees with discharge) Attending physician: KEVIN HOLDEN 07/18/17 15:19 Consult to Physician [CONS] Routine Consulting Provider: ROMMEL MCGRATH Reason For Exam: labor, twin gestation Place consult to:: [facility] Notified:: OFFICE Phone number called:: [phone] Was contact made?: Yes If yes, spoke with:: LAURIE Time called:: 17:04 Comment:: WILL SEE IN AM 07/18/17 15:44 Consult to Physician [CONS] Routine Consulting Provider: PAULA PORTILLO Reason For Exam: labor, twins @ [address] to:: NICU Notified:: CHARGE NURSE Phone number called:: [phone] Was contact made?: Yes If yes, spoke with:: JEAN-CLAUDE GU Time called:: 17:09 Comment:: WILL SEE IN AM Primary care physician: KEVIN HOLDEN Hospitalization Reason for admission: labor (cervical chg; w/o delivery), other Discharge diagnosis: other (Twin gestation @ 30w6d with ctx) Hospital course: ctx @ 30+ weeks arrested with fluids and bedrest; BMZ X 2; MGSO4 X 48 hours Pt stable OB, [facility] agree pt maybe monitored outpt Pt w/o complaint VSS No CTX,LOF,bleeding reported. Pt reports good FM IUP @ 30w6d twin gestation P: d/c today with instructions Keep appt OB office Friday and with [facility] on 07-30-17 as scheduled. Home bound Pt aware to limit all activity. No driving. Take medication as instructed. All questions addressed. Condition at discharge: Good Disposition: DC-01 TO HOME OR SELFCARE - Discharge Diagnoses (1) labor in third trimester Status: Acute Qualifiers: Fetus number: fetus 2 of multiple gestation Comment: rto Friday for OB appt (2) Twin gestation, dichorionic/diamniotic (two placentae, two amniotic sacs) Status: Acute Qualifiers: Trimester: third trimester Qualified Code(s): O30.043 - Twin , dichorionic/diamniotic, third trimester Comment: keep appt with [facility] 07-30-17 Plan - Discharge Medications Prescriptions: NIFEdipine XL [Procardia Xl] 10 mg PO Q6H #60 tab - Provider Discharge Summary Activity: other (very limited; home bound; rest) Diet: routine Instructions: other ( labor instruction HO provided @ d/c) Additional instructions: [] Smoking cessation referral if applicable(refer to patient education folder for contact #) [] Refer to [facility] Booklet Call your doctor immediately for: * Fever > 100.5 * Heavy vaginal bleeding ( >1 pad per hour) * Severe persistent headache * Shortness of breath * Reddened, hot, painful area to leg or breast * Drainage or odor from incision. * Keep incision clean and dry at all times and follow doctor's instructions regarding bathing/showering - Follow up plan Follow up: KEVIN HOLDEN MD [Primary Care Provider] - 07/25/17 (keep appointment as scheduled Call with any concerns. [phone] take medications as instructed.)
== END 2017-07-21 12:59 | disposition home or self-care (01) | DRG 781 ==
LOC: TRG 11:05 → OBSVTOIN 16:12 → LD 16:12
PROVIDERS: ADMIT Obstetrics & Gynecology; ATTEND Obstetrics & Gynecology
DX: O30.043 Twin pregnancy, dichorionic/diamniotic, third trimester (principal); O99.613 Diseases of the digestive system complicating pregnancy, third trimester; O60.03 Preterm labor without delivery, third trimester; Z3A.30 30 weeks gestation of pregnancy; Z88.8 Allergy status to other drugs, medicaments and biological substances; K21.9 Gastro-esophageal reflux disease without esophagitis; Z79.82 Long term (current) use of aspirin
CPT/HCPCS: 36415; 76815; 81001; 82731; 83735; 85025; 86850; 86900; 86901; 96360; 96361; 96372; J0290; J0595; J0702; J2405; J3105; J3475; J7120

== ENCOUNTER 2017-07-29 12:11 | Outpatient (CLI) | payer OTHER ==
[2017-07-29] MEDS ORDERED: LACTATED RINGERS 500 ML IV ONE (12:45)
[2017-07-29 14:23] LABS: Bacteria,Urine 1+ /HPF (Negative); Bilirubin,Urine NEG (Negative); Blood,Urine NEG (Negative); Color,Urine Yellow (Yellow); Mucus,Urine FEW /HPF; Nitrite,Urine NEG (Negative); Protein,Urine <15 mg/dL mg/dL (Negative)
[2017-07-29] MEDS ORDERED: PROCARDIA*For Tocolysis only PO SCH (15:00)
[2017-07-29] MEDS ORDERED: VISTARIL PO PRN (16:45)
[2017-07-31 20:52] VITALS: BP 112/69
== END 2017-07-29 16:51 | disposition home or self-care (01) ==
LOC: TRG 12:11
PROVIDERS: ATTEND Obstetrics & Gynecology
DX: O47.03 False labor before 37 completed weeks of gestation, third trimester (principal); Z3A.32 32 weeks gestation of pregnancy
CPT/HCPCS: 59025; 81001; 96360; J7120; Q0177